=== PATIENT | male | born 1940 | race Caucasian/White ===

== ENCOUNTER 2019-11-10 06:54 | Observation (INO) | payer MEDICARE ==
--- NOTE | 2019-11-08 14:48 | Diagnostic Imaging Report ---
EXAMINATION: CHEST 2 VIEWS INDICATION: Pre-operative COMPARISON: Chest radiograph 04/30/2019 FINDINGS: LINES/TUBES:Left chest AICD. LUNGS:Biapical pleural parenchymal thickening/scarring. Hyperinflated lungs. No focal consolidation or pulmonary edema. PLEURA:No pleural effusion or pneumothorax. MEDIASTINUM:The cardiomediastinal silhouette appears normal in size and shape. BONES/SOFT TISSUES:No acute osseous injury. ABDOMEN:No free air under the diaphragm. IMPRESSION: Hyperinflated lungs. No focal pneumonia or pulmonary edema. Signed by: Guillermo Ramsey MD on 11/08/2019 2:45 PM
[2019-11-08 15:05] LABS: BASOPHILS # (AUTO) 0.1 (0.0-0.1); BASOPHILS % 0.6 % (0.0-1.0); EOSINOPHILS # (AUTO) 0.1 (0.0-0.4); EOSINOPHILS % 1.6 % (0.0-6.0); HEMOGLOBIN 12.6 g/dL (14.0-18.0); LYMPHOCYTES # (AUTO) 1.9 (1.0-3.2); MEAN CORPUSCULAR HEMOGLOBIN 31.4 pg (28-32); MEAN CORPUSCULAR HGB CONC 32.3 g/dL (31-35); MEAN CORPUSCULAR VOLUME 97.3 fL (81-99); MONOCYTES # (AUTO) 0.7 (0.2-0.8); MONOCYTES % 9.3 % (4.4-11.3); NEUTROPHILS # (AUTO) 4.9 (2.1-6.9); NEUTROPHILS % 63.1 % (38.7-80.0); PLATELET COUNT 179 x10e3/uL (140-360); RED BLOOD COUNT 4.01 x10e6/uL (4.3-5.7); RED CELL DISTRIBUTION WIDTH 14.6 % (11.7-14.4)
[2019-11-08 15:24] LABS: ANION GAP 12.5 mmol/L (8-16); CALCIUM 10.2 mg/dL (8.4-10.2); CREATININE, SERUM 1.29 mg/dL (0.72-1.25); POTASSIUM 3.5 mmol/L (3.5-5.1)
[~2019-11-10] VITALS: Ht 180.3 cm; Wt 92.5 kg
[~2019-11-10 06:54] MED LIST: CALTRATE PO; ELIQUIS PO; FINASTERIDE1 MG PO; FLOMAX0.4 MG PO; FUROSEMIDE40 MG PO; LISINOPRIL2.5 MG PO; LORAZEPAM1 MG PO; METOPROLOL TART50 MG PO; NIACIN100 MG PO
[2019-11-10] MEDS ORDERED: AMPICILLIN SOD 1 GM/NS 50ML 50 ML IV ONE (07:12)
[2019-11-10] MEDS ORDERED: GENTAMICIN 80MG/NS 100 ML 200 ML IV ONE (07:12)
[2019-11-10] MEDS ORDERED: B&O 60MG R/S 60 MG SUPP PR ONE (09:50)
[2019-11-10] MEDS ORDERED: IOPAMIDOL 300MG/ML 50ML INFUS..BTL IV ONE (09:50)
[2019-11-10] MEDS ORDERED: DIPHENHYDRAMINE HCL 25 MG CAP PO PRN (11:15)
[2019-11-10] MEDS ORDERED: B&O 60MG R/S 60 MG SUPP PR PRN (11:15)
[2019-11-10] MEDS ORDERED: ACETAMINOPHEN/CODEINE 300MG - 30MG TAB PO PRN (11:15)
[2019-11-10] MEDS ORDERED: ONDANSETRON HCL INJ 2MG/ML 2ML 2 MG/ML VIAL IV PRN (11:15)
[2019-11-10 12:19] LABS: BASOPHILS % 0.3 % (0.0-1.0); EOSINOPHILS # (AUTO) 0.1 (0.0-0.4); EOSINOPHILS % 1.3 % (0.0-6.0); HEMATOCRIT 35.4 % (38.2-49.6); HEMOGLOBIN 11.6 g/dL (14.0-18.0); LYMPHOCYTES # (AUTO) 1.7 (1.0-3.2); LYMPHOCYTES % 16.7 % (18.0-39.1); MEAN CORPUSCULAR HEMOGLOBIN 31.4 pg (28-32); MEAN CORPUSCULAR HGB CONC 32.8 g/dL (31-35); MEAN CORPUSCULAR VOLUME 95.9 fL (81-99); MONOCYTES # (AUTO) 0.4 (0.2-0.8); MONOCYTES % 3.5 % (4.4-11.3); NEUTROPHILS # (AUTO) 7.7 (2.1-6.9); NEUTROPHILS % 77.8 % (38.7-80.0); PLATELET COUNT 145 x10e3/uL (140-360); RED BLOOD COUNT 3.69 x10e6/uL (4.3-5.7); RED CELL DISTRIBUTION WIDTH 14.4 % (11.7-14.4)
[2019-11-10 12:40] LABS: ANION GAP 11.2 mmol/L (8-16); CALCIUM 9.1 mg/dL (8.4-10.2); CREATININE, SERUM 1.34 mg/dL (0.72-1.25); POTASSIUM 4.2 mmol/L (3.5-5.1)
--- NOTE | 2019-11-10 13:10 | Operative Report ---
DATE OF PROCEDURE: 11/10/2019 SURGEON: Francisco Nieves MD POSTOPERATIVE DIAGNOSES: 1. Obstructive BPH. 2. Urinary tract infection. POSTOPERATIVE DIAGNOSES: 1. Obstructive BPH. 2. Urinary tract infection. 3. Urethral stricture disease. OPERATIONS PERFORMED: 1. Cystourethroscopy with bilateral ureteral catheterization and retrograde ureteropyelography (separate staged procedure performed for the urinary tract infections). 2. Interpretation of retrograde ureteropyelography. 3. Supervision of fluoroscopy, no radiologist present. 4. Cystourethroscopy with transurethral resection of the prostate utilizing the plasma band electrode (separate staged procedure performed for the obstructive BPH). 5. Cystoscopy with dilation of urethral stricture. ANESTHESIA: General. COMPLICATIONS: None. CLINICAL SUMMARY: Paris Garrido is a 79-year-old man, who has been diagnosed with prostate cancer. He is pending radiotherapy as begun hormone therapy. We are awaiting for the performance of this transurethral resection of the prostate, so the patient can heal from that and then go on to manage his cancer with external beam radiotherapy. The patient has also had recurrent tract infection, has been treated with culture specific antibiotics. He is aware of the risks of bleeding, infection, injury to adjacent structures, incontinence, impotence, retrograde ejaculation, need for additional procedures, and elected to proceed. This procedure was done during the COVID-19 emergency because it is not elective. We need this procedure in order to be able to continue this patient's cancer management. Also, his recurrent infections are caused in part by his poor emptying due to obstructive BPH, and we need to perform this procedure . OPERATIVE PROCEDURE IN DETAIL: Informed consent was verified. Paris Garrido was properly identified, taken to the operating room, placed on the cystoscopy table in supine position. Anesthesia was uneventfully begun. The patient was then carefully gently repositioned in dorsal lithotomy position with all pressure points well padded. His genitalia were prepared and draped in usual sterile fashion. A 22.5-Malagasy cystoscope sheath with a visual obturator in place was atraumatically inserted through the patient's urethra, it was guided into the patient's urethra. Just past the fossa navicularis, there was a relatively wide caliber, but panurethral stricture disease. This was gently dilated with a 22.5-Malagasy cystoscope sheath as we reached the normal sphincteric region. The urethral stricture was almost the entire length of the urethra. The prostate bed significant for visual obstructing BPH with kissing lateral lobes. We entered the patient's bladder. Panendoscopy revealed grade 2-3 trabeculations with early cellule formation. No suspicious lesions were identified. An 8-Malagasy catheter was used to cannulate each ureter and retrograde ureteral pyelograms were performed. Interpretation of retrograde ureteropyelography contrast was instilled in retrograde fashion bilaterally. There were no tumors, no stones, no diverticula. Unobstructed drainage was observed bilaterally fluoroscopically. There was J-hooking noted bilaterally. There was chronic appearing fullness of both collecting system consistent with a longstanding obstruction. We progressively dilated the urethra utilizing sounds to 28-Malagasy. We then easily able to place the resectoscope sheath with obturator in place. We then proceeded with performing transurethral resection of the prostate from the bladder neck tube, but never passed the verumontanum and down the surgical capsule utilizing the electrode. Pinpoint electrocautery was utilized to achieve hemostasis. All chips were evacuated, and this was verified endoscopically, and belladonna and opium suppository was placed. The patient was uneventfully reversed from anesthesia and taken to the recovery room in stable condition. There were no complications to the procedure. The patient tolerated the procedure well. Estimated blood loss was minimal. We will proceed with postoperative care including continuous bladder irrigation and intravenous antibiotics, and hopefully we will send the patient to home in the next couple of days. Ongoing urological followup is must. Francisco MD Ezequiel [place]/MODL /[id number] cc: Jakob LEMA
[2019-11-10 14:00] VITALS: BP 178/86
[2019-11-10 14:09] VITALS: BP 178/86
[2019-11-10] MEDS: FENTANYL CITRATE/PF 100MCG/2 ML INJ ONE ×2 (14:35→16:42)
[2019-11-10] MEDS: MORPHINE SULFATE INJ 4 MG/ML INJ 1ML ONE ×2 (14:35→16:43)
[2019-11-10] MEDS: HYDROMORPHONE 1MG/1ML INJ ONE ×2 (14:36→16:44)
[2019-11-10] MEDS: PHENAZOPYRIDINE HCL 100 MG TAB PO SCH ×2 (14:38→17:06)
[2019-11-10] MEDS: D5.45%NS/KCL 20MEQ 1,000 ML IV SCH (14:38)
[2019-11-10] MEDS ORDERED: ACETAMINOPHEN 1000 MG/100 ML IV PRN (15:00)
[2019-11-10] MEDS: AZTREONAM 1 GM/NS 50 ML 50 ML IV SCH (16:01)
[2019-11-10 16:22] VITALS: BP 137/73
[2019-11-10] MEDS: DOCUSATE SODIUM 100 MG CAP PO SCH (17:06)
[2019-11-10] MEDS: AMPICILLIN SOD 1 GM/NS 50ML 50 ML IV SCH (17:06)
[2019-11-10 19:21] LABS: BASOPHILS % 0.2 % (0.0-1.0); EOSINOPHILS % 0.1 % (0.0-6.0); HEMATOCRIT 35.6 % (38.2-49.6); HEMOGLOBIN 11.6 g/dL (14.0-18.0); LYMPHOCYTES # (AUTO) 0.7 (1.0-3.2); LYMPHOCYTES % 8.2 % (18.0-39.1); MEAN CORPUSCULAR HEMOGLOBIN 31.5 pg (28-32); MEAN CORPUSCULAR HGB CONC 32.6 g/dL (31-35); MEAN CORPUSCULAR VOLUME 96.7 fL (81-99); MONOCYTES # (AUTO) 0.2 (0.2-0.8); NEUTROPHILS # (AUTO) 7.6 (2.1-6.9); NEUTROPHILS % 89.3 % (38.7-80.0); PLATELET COUNT 177 x10e3/uL (140-360); RED BLOOD COUNT 3.68 x10e6/uL (4.3-5.7); RED CELL DISTRIBUTION WIDTH 14.5 % (11.7-14.4)
[2019-11-10] MEDS ORDERED: DEXAMETHASONE SOD PHOS INJ 4 MG/ML VIAL ONE (19:38)
[2019-11-10] MEDS ORDERED: ACETAMINOPHEN 1000 MG/100 ML IV ONE (19:38)
[2019-11-10] MEDS ORDERED: SEVOFLURANE INHAL SOLN 250 ML PEN BTL ONE (19:38)
[2019-11-10] MEDS ORDERED: ONDANSETRON HCL INJ 2MG/ML 2ML 2 MG/ML VIAL ONE (19:38)
[2019-11-10] MEDS ORDERED: PROPOFOL IV EMULSION 10 MG/ML 20 ML VIAL ONE (19:38)
[2019-11-10] MEDS ORDERED: LIDOCAINE HCL 2% LOCAL INJ 5 ML SDV VIAL INJ ONE (19:38)
[2019-11-10 20:00] VITALS: BP 141/81
--- NOTE | 2019-11-10 20:52 | Consultation ---
DATE OF CONSULTATION: 11/10/2019 Cardiology Consultation REQUESTING PHYSICIAN: Dr. Nieves. REASON FOR CONSULTATION: Management of cardiac condition. HISTORY OF PRESENT ILLNESS: This is a 79-year-old male with history of chronic systolic heart failure, status post BiV ICD, atrial fibrillation status post AV node ablation, moderate aortic stenosis, mild coronary artery disease, and known carotid stenosis, who presents for elective TURP. The patient was seen postoperatively on the floor, receiving continuous bladder irrigation. He denies any cardiac complaints. Denies chest pain, shortness of breath, palpitations, edema, orthopnea, PND, or lightheadedness. He denies any recent shocks from his ICD. REVIEW OF SYSTEMS: Negative except as per HPI. PAST MEDICAL HISTORY: 1. Chronic systolic heart failure, status post BiV ICD. 2. Atrial fibrillation, status post AV node ablation. 3. Moderate aortic stenosis. 4. Mild coronary artery disease. 5. Known carotid stenosis. 6. Hypertension. 7. Hyperlipidemia. ALLERGIES: PLEASE SEE EMR. MEDICATIONS: Please see medication list. SOCIAL HISTORY: No smoking or alcohol. FAMILY HISTORY: Noncontributory to current illness. PHYSICAL EXAMINATION: VITAL SIGNS: Temperature 97.4 degrees, pulse 80, respiratory rate 18, blood pressure 146/93, and oxygen saturation 98% on room air. GENERAL: Elderly man, in no acute distress, well-developed, well-nourished. HEENT: Normocephalic and atraumatic. Pupils equal. No scleral icterus. NECK: Supple. No thyromegaly or cervical lymphadenopathy. No carotid bruits. LUNGS: Clear to auscultation bilaterally. No wheezes or crackles. CARDIOVASCULAR: Normal rate. Regular rhythm. Normal S1 and S2. 1/6 systolic murmur. ABDOMEN: Soft and nontender. EXTREMITIES: No edema. NEUROLOGIC: Nonfocal exam. LABORATORY DATA: WBC 9.94, hemoglobin 11.6, hematocrit 35.4, and platelets 145. Sodium 141, potassium 4.2, chloride 105, CO2 29, BUN 17, and creatinine 1.34. IMPRESSION: 1. Status post transurethral resection of the prostate. 2. Chronic systolic heart failure, status post BiV ICD. 3. Atrial fibrillation, status post AV node ablation. 4. Mild coronary artery disease. 5. Moderate aortic stenosis. 6. Carotid stenosis. 7. Hypertension. 8. Hyperlipidemia. RECOMMENDATIONS: Continue home cardiac medications. Resume warfarin once agreeable from a surgical standpoint. Blood pressure is for the most part acceptable for his age. Resume Eliquis once acceptable from a surgical standpoint. The patient's blood pressure is adequate for his age. Continue home cardiac medications. Monitor the patient on telemetry. Postoperative management per Urology. Stable CV status. No further cardiac evaluation is indicated at this time. Thank you for this consult. We will continue to follow. Kristine Berry MD [facility]/MODL /[id number]
[2019-11-10 21:01] VITALS: BP 141/81
[2019-11-10 21:20] VITALS: BP 141/81
[2019-11-11] VITALS (11 sets, daily range): BP systolic 101–135; BP diastolic 59–79
[2019-11-11] MEDS: AMPICILLIN SOD 1 GM/NS 50ML 50 ML IV SCH ×3 (01:49→16:49)
[2019-11-11] MEDS: AZTREONAM 1 GM/NS 50 ML 50 ML IV SCH ×2 (04:06→16:28)
[2019-11-11] MEDS: D5.45%NS/KCL 20MEQ 1,000 ML IV SCH ×2 (04:06→15:25)
[2019-11-11 05:21] LABS: BASOPHILS % 0.1 % (0.0-1.0); HEMATOCRIT 32.3 % (38.2-49.6); HEMOGLOBIN 10.6 g/dL (14.0-18.0); LYMPHOCYTES # (AUTO) 1.3 (1.0-3.2); LYMPHOCYTES % 8.7 % (18.0-39.1); MEAN CORPUSCULAR HEMOGLOBIN 31.7 pg (28-32); MEAN CORPUSCULAR HGB CONC 32.8 g/dL (31-35); MEAN CORPUSCULAR VOLUME 96.7 fL (81-99); MONOCYTES # (AUTO) 1.1 (0.2-0.8); MONOCYTES % 7.4 % (4.4-11.3); NEUTROPHILS # (AUTO) 12.7 (2.1-6.9); NEUTROPHILS % 83.3 % (38.7-80.0); PLATELET COUNT 184 x10e3/uL (140-360); RED BLOOD COUNT 3.34 x10e6/uL (4.3-5.7); RED CELL DISTRIBUTION WIDTH 14.5 % (11.7-14.4)
[2019-11-11 05:38] LABS: ANION GAP 8.6 mmol/L (8-16); BLOOD UREA NITROGEN 20 mg/dL (7-26); BUN/CREATININE RATIO 18 (6-25); CALCIUM 8.8 mg/dL (8.4-10.2); CARBON DIOXIDE 28 mmol/L (22-29); CHLORIDE 105 mmol/L (98-107); CREATININE, SERUM 1.12 mg/dL (0.72-1.25); EST GLOMERULAR FILTRATION RATE > 60 ML/MIN (60-); GLUCOSE 147 mg/dL (74-118); POTASSIUM 4.6 mmol/L (3.5-5.1); SODIUM 137 mmol/L (136-145)
[2019-11-11] MEDS: PHENAZOPYRIDINE HCL 100 MG TAB PO SCH ×3 (08:46→16:49)
[2019-11-11] MEDS: DOCUSATE SODIUM 100 MG CAP PO SCH ×2 (08:46→16:49)
[2019-11-11 10:40] LABS: CHOL/HDL RATIO 4.5 (3.9-4.7)
--- NOTE | 2019-11-11 11:19 | Progress Note ---
DATE: 11/11/2019 Cardiology Progress Note SUBJECTIVE: The patient denies chest pain or shortness of breath. OBJECTIVE: VITAL SIGNS: Temperature 96 degrees, pulse 70, respiratory rate 18, blood pressure 101/59, and oxygen saturation 95% on room air. GENERAL: Elderly man, in no acute distress. Awake and alert. LUNGS: Clear to auscultation bilaterally. No wheezes or crackles. CARDIOVASCULAR: Normal rate. Regular rhythm. 1/6 systolic murmur. Normal S1 and S2. ABDOMEN: Soft and nontender. EXTREMITIES: No edema. GENITOURINARY: Hematuria persist. The patient is on continuous bladder irrigation. CARDIAC MEDICATIONS: None. LABORATORY DATA: WBC 15.19, hemoglobin 10.6, hematocrit 32.3, and platelets 184. Sodium 137, potassium 4.6, chloride 105, CO2 28, BUN 20, and creatinine 1.12. IMPRESSION: 1. Status post transurethral resection of the prostate. 2. Chronic systolic heart failure, status post BiV ICD. 3. Atrial fibrillation, status post AV node ablation. 4. Mild coronary artery disease. 5. Moderate aortic stenosis. 6. Carotid stenosis. 7. Hypertension. 8. Hyperlipidemia. RECOMMENDATIONS: Please resume home lisinopril, metoprolol, and furosemide. Continue to hold Eliquis given continued hematuria and recent TURP. Resume once acceptable from a surgical standpoint. Cardiac status is stable. No further cardiac evaluation is indicated at this time. Postoperative management per Urology. Thank you for this consult. We will continue to follow. Kristine Berry MD [facility]/MODL /[id number]
[2019-11-11 11:50] LABS: LYMPHOCYTES % (MANUAL) 12 % (19-48); MONOCYTES % (MANUAL) 12 % (3.4-9.0); NEUTROPHILS % (MANUAL) 76 % (40-74)
[2019-11-11 11:51] LABS: PLATELET ESTIMATE ADEQUATE; PLATELET MORPHOLOGY COMMENT NORMAL; RBC MORPHOLOGY COMMENT NORMAL
[2019-11-11] MEDS: DEXTROSE 5%/0.45% SOD CHL 1,000 ML IV SCH (15:51)
[2019-11-11] MEDS ORDERED: TAMSULOSIN HCL 0.4 MG CAP PO SCH (21:00)
[2019-11-12] VITALS: BP 130/75
[2019-11-12] MEDS: AMPICILLIN SOD 1 GM/NS 50ML 50 ML IV SCH ×2 (02:58→09:32)
[2019-11-12] MEDS: DEXTROSE 5%/0.45% SOD CHL 1,000 ML IV SCH ×3 (02:58→13:31)
[2019-11-12] MEDS: AZTREONAM 1 GM/NS 50 ML 50 ML IV SCH ×2 (03:48→15:19)
[2019-11-12 04:00] VITALS: BP 131/62
[2019-11-12 05:34] LABS: BASOPHILS % 0.3 % (0.0-1.0); EOSINOPHILS # (AUTO) 0.1 (0.0-0.4); EOSINOPHILS % 0.8 % (0.0-6.0); HEMATOCRIT 29.9 % (38.2-49.6); HEMOGLOBIN 9.8 g/dL (14.0-18.0); LYMPHOCYTES # (AUTO) 2.4 (1.0-3.2); MEAN CORPUSCULAR HGB CONC 32.8 g/dL (31-35); MEAN CORPUSCULAR VOLUME 97.7 fL (81-99); MONOCYTES # (AUTO) 0.9 (0.2-0.8); MONOCYTES % 8.9 % (4.4-11.3); NEUTROPHILS # (AUTO) 6.8 (2.1-6.9); NEUTROPHILS % 66.6 % (38.7-80.0); PLATELET COUNT 138 x10e3/uL (140-360); RED BLOOD COUNT 3.06 x10e6/uL (4.3-5.7); RED CELL DISTRIBUTION WIDTH 14.8 % (11.7-14.4)
[2019-11-12 05:50] LABS: ANION GAP 9.2 mmol/L (8-16); CALCIUM 8.6 mg/dL (8.4-10.2); CREATININE, SERUM 1.2 mg/dL (0.72-1.25); POTASSIUM 4.2 mmol/L (3.5-5.1)
[2019-11-12 08:01] VITALS: BP 141/70
[2019-11-12 08:11] VITALS: BP 141/70
[2019-11-12] MEDS: DOCUSATE SODIUM 100 MG CAP PO SCH (08:15)
[2019-11-12] MEDS: PHENAZOPYRIDINE HCL 100 MG TAB PO SCH ×2 (08:17→13:31)
[2019-11-12] MEDS ORDERED: FINASTERIDE 5 MG TAB PO SCH (09:00)
[2019-11-12] MEDS ORDERED: ONDANSETRON HCL 4 MG ORAL DISINTEGRATING TAB PO PRN (09:30)
[2019-11-12 12:28] VITALS: BP 141/66
--- NOTE | 2019-11-12 13:18 | Progress Note ---
DATE: 11/12/2019 Cardiology Progress Note SUBJECTIVE: The patient denies chest pain or shortness of breath. OBJECTIVE: VITAL SIGNS: Temperature 96.5 degrees, pulse 70, respiratory rate 18, blood pressure 141/70, oxygen saturation 99% on room air. GENERAL: Awake, alert, in no acute distress. LUNGS: Clear to auscultation bilaterally. No wheezes or crackles. CARDIOVASCULAR: Normal rate. Regular rhythm. 1/6 systolic murmur. Normal S1 and S2. ABDOMEN: Soft and nontender. EXTREMITIES: No edema. CARDIAC MEDICATIONS: None. LABORATORY DATA: WBC 10.24, hemoglobin 9.8, hematocrit 29.9, platelets 138. Sodium 139, potassium 4.2, chloride 107, CO2 of 27, BUN 19, and creatinine 1.2. IMPRESSION: 1. Status post transurethral resection of the prostate. 2. Chronic systolic heart failure, status post BiV ICD. 3. Atrial fibrillation status post AV node ablation. 4. Mild coronary artery disease. 5. Moderate aortic stenosis. 6. Carotid stenosis. 7. Hypertension. 8. Hyperlipidemia. RECOMMENDATIONS: We will resume home lisinopril, metoprolol, and furosemide. Continue to hold Eliquis given continued hematuria and recent TURP. Resume once acceptable from a surgical standpoint. Cardiac status is stable. No further cardiac evaluation is indicated at this time. Postoperative management per Urology. Thank you for this consult. We will continue to follow. Kristine Berry MD [facility]/MODL /[id number]
[2019-11-12 16:29] VITALS: BP 147/69
[2019-11-13] MEDS ORDERED: METOPROLOL SUCCINATE 50 MG TAB XL PO SCH (09:00)
[2019-11-13] MEDS ORDERED: FUROSEMIDE 40 MG TAB PO SCH (09:00)
[2019-11-13] MEDS ORDERED: LISINOPRIL 2.5 MG TAB PO SCH (09:00)
== END 2019-11-12 16:40 | disposition home or self-care (01) ==
LOC: OR 06:54 → INTOOBSV 11:09 → PACU V 11:09 → MED/SURG 12:45
PROVIDERS: ADMIT Internal Medicine; ATTEND Internal Medicine
DX: N40.1 Benign prostatic hyperplasia with lower urinary tract symptoms (principal); R39.14 Feeling of incomplete bladder emptying; R35.1 Nocturia; N18.9 Chronic kidney disease, unspecified; C61 Malignant neoplasm of prostate; I48.0 Paroxysmal atrial fibrillation; N50.0 Atrophy of testis; N28.1 Cyst of kidney, acquired; E29.1 Testicular hypofunction; F41.9 Anxiety disorder, unspecified; I25.10 Atherosclerotic heart disease of native coronary artery without angina pectoris; I11.0 Hypertensive heart disease with heart failure; I50.22 Chronic systolic (congestive) heart failure; Z95.810 Presence of automatic (implantable) cardiac defibrillator; Z87.440 Personal history of urinary (tract) infections; Z87.898 Personal history of other specified conditions; E78.5 Hyperlipidemia, unspecified; I65.29 Occlusion and stenosis of unspecified carotid artery; I35.0 Nonrheumatic aortic (valve) stenosis; N35.919 Unspecified urethral stricture, male, unspecified site; N17.9 Acute kidney failure, unspecified; R73.9 Hyperglycemia, unspecified; E66.9 Obesity, unspecified; Z68.28 Body mass index [BMI] 28.0-28.9, adult
CPT/HCPCS: 36415; 71046; 74420; 80048; 80061; 83036; 83735; 85025; 88305; 93005; G0378; J0290; J1100; J1170; J1580; J2001; J2270; J2405; J3010

== ENCOUNTER → 2020-02-18 | Outpatient (CLI) | payer MEDICARE ==
--- NOTE | 2020-02-18 12:56 | Diagnostic Imaging Report ---
Exam: Testicular ultrasound. Clinical History: Epididymoorchitis Findings: Sonographic evaluation of the testicles. Both testes are normal in echogenicity and size without intratesticular mass. Normal symmetric bilateral blood flow without evidence of testicular torsion. Right: The right testicle measures 3.7 x 1.6 x 2.6 cm and appears unremarkable. The right epididymis measures 1.4 x 0.8 x 1.2 cm with prominence of the epididymal tail and associated increased vascularity. Left: The left testicle measures 2.7 x 2.2 x 2.4 cm and appears unremarkable. The right epididymis measures 1.0 x 1.3 x 1.2 cm with enlargement of the epididymal tail to 2.1 cm with associated increased vascularity. Moderate left hydrocele. Impression: Bilateral epididymal enlargement with associated increased vascularity, compatible with epididymitis. Moderate left hydrocele. Signed by: Guillermo Ramsey MD on 02/18/2020 12:53 PM
== END ==
LOC: US 09:47
PROVIDERS: ATTEND Urology
DX: N45.3 Epididymo-orchitis (principal); N43.3 Hydrocele, unspecified
CPT/HCPCS: 76870; 93976